=== PATIENT | male | born 1990 | race Caucasian/White ===

== ENCOUNTER 2021-08-31 20:04 | Emergency (ER) | payer MEDICAID ==
[~2021-08-31] VITALS: Ht 177.8 cm; Wt 68.0 kg
[2021-08-31 20:11] VITALS: BP 123/79
--- NOTE | 2021-08-31 20:21 | NUR ---
PT AMBULATED UNASSISTED TO ER BED 07
--- NOTE | 2021-08-31 20:50 | NUR ---
BARBARA ALVARADO AT BEDSIDE FOR MEDICAL EXAMINATION
[2021-08-31] MEDS ORDERED: IBUP-2213 PO (21:04)
--- NOTE | 2021-08-31 21:14 | NUR ---
SEEN AND DISCHARGED BY BARBARA ALVARADO. NO NURSING INTERVENTIONS NEEDED.
== END 2021-08-31 21:14 | disposition home or self-care (01) ==
LOC: MED 20:04
DX: R10.30 Lower abdominal pain, unspecified (principal)
CPT/HCPCS: 99282